=== PATIENT | male | born 1970 | race Caucasian/White ===

== ENCOUNTER 2020-05-21 15:38 | Emergency (ER) | payer OTHER ==
[~2020-05-21] VITALS: Ht 193 cm; Wt 106.6 kg
--- NOTE | 2020-05-21 15:52 | NUR ---
Pt was hiking earlier and fell down, put his hands out to brace, hit left hand on rock and got 2cm lac at base of left thumb, also a few small abrassions on palm, distal PMS intact, pain 5/10. No other complaints, no distress noted.
[2020-05-21] MEDS ORDERED: TDAP DIPH,PERTUSS,TET VAC/PF 0.5 ML DISP.SYRIN IM ONE ×2 (16:15→16:38)
== END 2020-05-21 16:49 | disposition home or self-care (01) ==
LOC: ER 15:38
DX: S61.412A Laceration without foreign body of left hand, initial encounter (principal); W01.198A Fall on same level from slipping, tripping and stumbling with subsequent striking against other object, initial encounter; Y93.01 Activity, walking, marching and hiking; Y92.89 Other specified places as the place of occurrence of the external cause
CPT/HCPCS: 73130; 90715

== ENCOUNTER 2020-07-29 00:41 | Emergency (ER) | payer OTHER ==
[~2020-07-29] VITALS: Ht 193 cm; Wt 106.6 kg
--- NOTE | 2020-07-29 01:02 | NUR ---
Pt provided urine sample, sent to lab.
[2020-07-29 01:26] LABS: BASOPHILS % (AUTO) 0.7 % (0.0-2.0); EOSINOPHILS # (AUTO) 0.3 K/uL (0.0-0.7); EOSINOPHILS % (AUTO) 4.3 % (0.0-7.0); HEMATOCRIT 42.1 % (36.7-47.1); HEMOGLOBIN 14.3 g/dL (12.5-16.3); LYMPHOCYTES # (AUTO) 1.7 K/uL (20.0-40.0); LYMPHOCYTES % (AUTO) 25.9 % (20.5-51.5); MEAN CORPUSCULAR HEMOGLOBIN 26.3 uug (23.8-33.4); MEAN CORPUSCULAR HGB CONC 34 g/dL (32.5-36.3); MEAN CORPUSCULAR VOLUME 77.5 fL (73.0-96.2); MONOCYTES # (AUTO) 0.7 K/uL (2.0-10.0); MONOCYTES % (AUTO) 10.3 % (0.0-11.0); NEUTROPHILS # (AUTO) 3.9 K/uL (1.8-8.9); NEUTROPHILS % (AUTO) 58.8 % (38.5-71.5); PLATELET COUNT (AUTO) 188 K/uL (152-348); RED BLOOD CELL COUNT(AUTO) 5.43 MIL/uL (4.06-5.63); WHITE BLOOD COUNT (AUTO) 6.6 K/uL (3.6-10.2)
[2020-07-29 01:31] LABS: CREATININE 1.8 mg/dL (0.6-1.3); POTASSIUM 3.5 mmol/L (3.5-5.1)
[2020-07-29] MEDS ORDERED: NITR0.4T48 SL (01:47)
--- NOTE | 2020-07-29 01:54 | NUR ---
d/c'd iv with catheter tip intact.gauze and tape applied.
[2020-07-29 01:57] VITALS: BP 152/96
[2020-07-30] MEDS ORDERED: LOSA25TA27 PO (05:31)
[2020-07-31] MEDS ORDERED: AMLO-212 PO (11:56)
[2020-07-31] MEDS ORDERED: LOSA50TA3 PO (11:56)
== END 2020-07-29 01:56 | disposition home or self-care (01) ==
LOC: ER 00:42
DX: I10 Essential (primary) hypertension (principal); N28.9 Disorder of kidney and ureter, unspecified; Z87.442 Personal history of urinary calculi; K51.90 Ulcerative colitis, unspecified, without complications
CPT/HCPCS: 36415; 70030-TC; 85025; 93005; A4663

== ENCOUNTER 2020-07-30 02:18 | Inpatient (IN) | payer OTHER ==
[~2020-07-30] VITALS: Ht 193 cm; Wt 116.1 kg
[~2020-07-30 02:18] MED LIST: NITR0.4T48 SL
--- NOTE | 2020-07-30 02:40 | NUR ---
Dr. Greenberg at bedside for MSE.
--- NOTE | 2020-07-30 03:05 | NUR ---
Xray at bedside.
[2020-07-30] MEDS ORDERED: NITROGLYCERIN 0.4 MG/TAB BOTTLE SL ONE (03:15)
[2020-07-30 03:17] LABS: CREATININE 1.8 mg/dL (0.6-1.3); POTASSIUM 3.4 mmol/L (3.5-5.1)
[2020-07-30 03:29] LABS: BILIRUBIN,DIRECT 0.2 mg/dL (0.0-0.2); BILIRUBIN,TOTAL 0.7 mg/dL (0.2-1.0); TOTAL PROTEIN, SERUM 8.2 g/dL (6.4-8.2)
[2020-07-30 03:34] LABS: BASOPHILS # (AUTO) 0.1 K/uL (0.0-8.0); EOSINOPHILS # (AUTO) 0.3 K/uL (0.0-0.7); HEMATOCRIT 43.9 % (36.7-47.1); HEMOGLOBIN 14.6 g/dL (12.5-16.3); LYMPHOCYTES # (AUTO) 1.9 K/uL (20.0-40.0); LYMPHOCYTES % (AUTO) 30.5 % (20.5-51.5); MEAN CORPUSCULAR HGB CONC 33 g/dL (32.5-36.3); MEAN CORPUSCULAR VOLUME 78.1 fL (73.0-96.2); MONOCYTES # (AUTO) 0.7 K/uL (2.0-10.0); NEUTROPHILS # (AUTO) 3.2 K/uL (1.8-8.9); NEUTROPHILS % (AUTO) 52.5 % (38.5-71.5); PLATELET COUNT (AUTO) 197 K/uL (152-348); RED BLOOD CELL COUNT(AUTO) 5.62 MIL/uL (4.06-5.63); WHITE BLOOD COUNT (AUTO) 6.2 K/uL (3.6-10.2)
[2020-07-30] MEDS ORDERED: hydrALAZINE HCL 20 MG/1 ML VIAL IV ONE (04:00)
--- NOTE | 2020-07-30 04:05 | NUR ---
Paged Dr Caldwell, hospitalist human relations manager for [facility] . Waiting for call back.
[2020-07-30] MEDS ORDERED: hydrALAZINE HCL 20 MG/1 ML VIAL ONE (04:09)
--- NOTE | 2020-07-30 04:26 | NUR ---
Dr Caldwell has not return call. Repaged for 2nd time.
[2020-07-30] MEDS ORDERED: LORAZEPAM 2 MG/1 ML VIAL IV ONE ×2 (05:30→06:00)
[2020-07-30] MEDS ORDERED: LORAZEPAM 2 MG/1 ML VIAL ONE ×2 (05:31→05:56)
[2020-07-30] MEDS ORDERED: LOSA25TA27 PO (05:31)
--- NOTE | 2020-07-30 05:35 | NUR ---
Dr. Greenberg on panel call with Tyrell Hilario NP. Patient accepted for admission to [facility], diagnosis: chest pain, HTN.
[2020-07-30] MEDS ORDERED: MORPHINE SULFATE 2 MG/1 ML DISP.SYRIN IV PRN (05:45)
[2020-07-30] MEDS ORDERED: ACETAMINOPHEN 325 MG TABLET PO PRN (05:45)
[2020-07-30] MEDS ORDERED: HYDROCODONE/APAP 5-325MG TABLET PO PRN (05:45)
[2020-07-30] MEDS ORDERED: POTASSIUM CHLORIDE 20 MEQ TAB.PRT.SR PO ONE (05:45)
[2020-07-30] MEDS ORDERED: NITROGLYCERIN 0.4 MG/TAB BOTTLE SL PRN (05:45)
[2020-07-30] MEDS ORDERED: CLONIDINE HCL 0.1 MG TABLET PO PRN (05:45)
[2020-07-30] MEDS ORDERED: ONDANSETRON 4 MG/2 ML VIAL IV PRN (05:45)
[2020-07-30] MEDS ORDERED: MAGNESIUM HYDROXIDE 30 ML LIQUID UDC PO PRN (05:45)
--- NOTE | 2020-07-30 06:05 | NUR ---
Report given to [facility].
--- NOTE | 2020-07-30 06:09 | NUR ---
Admitted a 49 y/o male to telemetry with an admitting diagnosis of Chest pain and hypertensive urgency. Pt is ambulatory, transferred to bed by himself. Pt denies any chest pain or discomfort. No s/s of respiratory distress. NSR on tele at 87/min. IV access on L AC intact and patent. Admission care rendered, belongings at bedside. Safety measures initiated, call light within reach, will endorse to day shift nurse.
[2020-07-30 06:28] VITALS: BP 169/102
[2020-07-30] MEDS: IV NS 1000 ML 1,000 ML IV PRN ×2 (06:40→20:00)
[2020-07-30 06:55] LABS: PHOSPHOROUS 3.2 mg/dL (2.5-4.9)
[2020-07-30 07:01] LABS: THYROID STIMULATING HORMONE 3.913 mIU/mL (0.358-3.740)
[2020-07-30 07:03] LABS: MAGNESIUM 2.3 mg/dL (1.8-2.4)
--- NOTE | 2020-07-30 08:00 | NUR ---
Received patient in bed asleep. @0900 patient is still sleeping with no s/s of distress. @1000 BP:160/102 , patient doesn't complain of headache or any kind of pain, cooperative upon assessment. Pateint stated "I don't want to take Losartan". Clonidine 0.1 mg tablet given per MD order. 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 Notified [facility] and order for Amlodipine 5 mg. Recheck BP. 138/90. When asked if I can interview him for his admission assessment , patient refused and wants to sleep. Per patient he didn't get enough sleep in the ER. Call light within reach. Left AC IV site intact. Will continue to monitor.
[2020-07-30] MEDS ORDERED: LOSARTAN POTASSIUM 25 MG TABLET PO SCH (09:00)
[2020-07-30] MEDS: ASPIRIN 81 MG TAB.CHEW PO SCH (10:14)
[2020-07-30 14:00] VITALS: BP 148/49
[2020-07-30 15:02] LABS: *BILIRUBIN,URIN NEGATIVE (NEGATIVE); *BLOOD, URINE NEGATIVE (NEGATIVE); *CLARITY,URINE CLEAR (CLEAR); *COLOR,URINE YELLOW (YELLOW); *KETONES,URINE NEGATIVE (NEGATIVE); *UROBILINOGEN,URINE 0.2 E.U./dl (NORMAL); LEUKOCYTE ESTERASE ,URINE NEGATIVE (NEGATIVE); NITRITE, URINE NEGATIVE (NEGATIVE); UGLUCOSE NEGATIVE (NEGATIVE)
[2020-07-30 15:03] LABS: *CREATININE,URINE 163.7 mg/dL (30-125); *URINE TOTAL PROTEIN RANDOM 18.9 mg/dL (<150/24HR)
--- NOTE | 2020-07-30 15:25 | NUR ---
Patient in bed with his family. Alert and oriented. Patient wanted to take the amlodipine 5 mg tonight at 2100. BP taken is 148/91. Patient denies of any pain. Offered to patient that I can call the pharmacy and give amlodipine 5mg now but patient insisted that he wants to have it tonight at 2100 pharmacy notified. Call the ultrasound dept to get an update regarding the ultrasound of the kidney order but no answer and left a message.
--- NOTE | 2020-07-30 18:46 | NUR ---
Patient is complaining that the room is very hot. Notified Engineering Dept. and stated that his room has an AC problem and would recommend to transfer the patient to another room. Notified the charge nurse and patient was being transferred to room 330.
--- NOTE | 2020-07-30 19:30 | NUR ---
RECEIVED PT AWAKE, ALERT AND ORIENTEDX4. PT IN NO ACUTE DISTRESS. IV INTACT. PT TOLERATING IT WELL. SAFETY AND COMFORT PROVIDED. WILL CONTINUE TO MONITOR.
[2020-07-30 20:16] VITALS: BP 145/96
[2020-07-30] MEDS ORDERED: AMLODIPINE 5 MG TABLET PO SCH (21:00)
[2020-07-31 00:55] VITALS: BP 133/82
[2020-07-31 05:20] VITALS: BP 133/83
--- NOTE | 2020-07-31 05:39 | NUR ---
PT SLEPT INTERMITTENTLY. PT IN NO ACUTE DISTRESS. IV INTACT. PRESCRIBED MEDICATION GIVEN AND PT TOLERATED IT WELL. PT VITAL SIGNS STABLE. SAFETY AND COMFORT PROVIDED. WILL CONTINUE TO MONITOR.
[2020-07-31 06:07] LABS: BASOPHILS % (AUTO) 0.9 % (0.0-2.0); EOSINOPHILS # (AUTO) 0.3 K/uL (0.0-0.7); EOSINOPHILS % (AUTO) 5.3 % (0.0-7.0); HEMATOCRIT 40.9 % (36.7-47.1); HEMOGLOBIN 13.8 g/dL (12.5-16.3); LYMPHOCYTES # (AUTO) 1.5 K/uL (20.0-40.0); LYMPHOCYTES % (AUTO) 29.5 % (20.5-51.5); MEAN CORPUSCULAR HEMOGLOBIN 26.5 uug (23.8-33.4); MEAN CORPUSCULAR HGB CONC 34 g/dL (32.5-36.3); MEAN CORPUSCULAR VOLUME 78.3 fL (73.0-96.2); MONOCYTES # (AUTO) 0.5 K/uL (2.0-10.0); MONOCYTES % (AUTO) 9.3 % (0.0-11.0); NEUTROPHILS # (AUTO) 2.8 K/uL (1.8-8.9); PLATELET COUNT (AUTO) 170 K/uL (152-348); RED BLOOD CELL COUNT(AUTO) 5.22 MIL/uL (4.06-5.63)
[2020-07-31 06:27] LABS: BILIRUBIN,TOTAL 0.7 mg/dL (0.2-1.0); CREATININE 1.6 mg/dL (0.6-1.3); POTASSIUM 3.8 mmol/L (3.5-5.1); TOTAL PROTEIN, SERUM 7.3 g/dL (6.4-8.2)
--- NOTE | 2020-07-31 07:50 | NUR ---
RECEIVED PATIENT IN BED AWAKE ALERT AND ORIENTED WITH IVF IN PROGRESS ORDERED.PATIENT REQUESTED TO HAVE THE HEPLOCK ON HIS LEFT WRIST RE TAPPED STATED HE DID NOT LIKE THE WAY IT WAS TAPPED SO PREVIOUS TAPE REMOVED AND NEW TAPE REAPPLIED AND CONTINUED HIS IVF ORDERED.CALL LIGHTS AND HIS PERSONAL BELONGINGS ARE PLACED WITHIN EASY REACH WILL CONTINUE TO OBSERVE.
[2020-07-31 07:57] VITALS: BP 160/88
[2020-07-31] MEDS: ASPIRIN 81 MG TAB.CHEW PO SCH (08:07)
--- NOTE | 2020-07-31 08:10 | NUR ---
CALL RECEIVED FROM PATIENT STATED THAT HIS IV WAS LEAKING UNABLE TO RESTORE SO THE HEPLOCK REMOVED AND PATIENT STATED SURE THAT HE WILL BE GOING HOME SOON THE DOCTOR VISITS HIM TODAY SO WILL HOLD OFF ON RESTARTING HIS HEPLOCK UNTIL SEEN BY THE DOCTOR AND WILL REINSERT AND THAT TIME IF HE WILL NOT BE DISCHARGED TODAY.
[2020-07-31] MEDS ORDERED: LOSARTAN POTASSIUM 50 MG TABLET PO SCH (10:30)
--- NOTE | 2020-07-31 11:00 | NUR ---
PATIENT SEEN BY DR HOLLOWAY STATED IT WAS OKAY FOR PATIENT TO BE DISCHARGED HOME TODAY STATED WILL NOTIFY [facility]
[2020-07-31 11:48] VITALS: BP 150/93
[2020-07-31] MEDS ORDERED: LOSA50TA3 PO (11:56)
[2020-07-31] MEDS ORDERED: AMLO-212 PO (11:56)
[2020-07-31 11:57] VITALS: BP 155/79
--- NOTE | 2020-07-31 12:00 | NUR ---
ORDER TO DISCHARGE PATIENT HOME TODAY NOTED AND CARRIED OUT PATIENT AWARE STATED THAT [facility] WILL PICK HIM UP
--- NOTE | 2020-07-31 12:40 | NUR ---
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
[2020-07-31] MEDS ORDERED: ATORVASTATIN 20 MG TABLET PO SCH (21:00)
[2020-08-01] MEDS ORDERED: AMLODIPINE 5 MG TABLET PO SCH (09:00)
== END 2020-07-31 10:40 | disposition home or self-care (01) | DRG 199 ==
LOC: ER 02:19 → TELE3 06:05
PROVIDERS: ADMIT Hospitalist; ATTEND Hospitalist
DX: I16.9 Hypertensive crisis, unspecified (principal); N17.0 Acute kidney failure with tubular necrosis; K51.90 Ulcerative colitis, unspecified, without complications; M94.0 Chondrocostal junction syndrome [Tietze]; Z20.822 Contact with and (suspected) exposure to COVID-19; E87.6 Hypokalemia; E78.5 Hyperlipidemia, unspecified; G89.29 Other chronic pain; N18.9 Chronic kidney disease, unspecified; I12.9 Hypertensive chronic kidney disease with stage 1 through stage 4 chronic kidney disease, or unspecified chronic kidney disease; Z87.442 Personal history of urinary calculi
CPT/HCPCS: 36415; 70030-TC; 71045; 76770; 83735; 84100; 84156; 84300; 84443; 85025; 93005; 93307; A4663; G0378; J0360; J2060; J7030